=== PATIENT | female | born 1945 | race Caucasian/White ===

== ENCOUNTER 2017-06-06 17:00 | Emergency (ER) | payer MEDICARE, OTHER ==
[2017-06-06] MEDS ORDERED: ASPIRIN 81 MG TAB.CHEW ONE ×2 (17:03→17:10)
[2017-06-06] MEDS ORDERED: ONDANSETRON HCL/PF 2 MG/ML VIAL ONE (17:06)
[2017-06-06] MEDS ORDERED: CLOPIDOGREL BISULFATE 75 MG TABLET PO STA (17:06)
[2017-06-06] MEDS ORDERED: ONDANSETRON HCL/PF 2 MG/ML VIAL IV ONE (17:06)
[2017-06-06] MEDS ORDERED: ASPIRIN 81 MG TAB.CHEW PO ONE (17:10)
[2017-06-06] MEDS ORDERED: HEPARIN SODIUM,PORCINE 5,000 UNITS/ML VIAL IV ONE (17:11)
[2017-06-06 17:14] LABS: Hematocrit 39.5 % (37.0-47.0); Hemoglobin 13.7 gm/dL (12.5-16.0); Mean Cell Volume 88.4 fl (78-100); Mean Corpuscular Hemoglobin 30.6 pg (27-31); Mean Corpuscular Hgb Conc 34.7 g/dl (32-36); Mean Platelet Volume 9.8 fl (6.0-9.5); Platelet Count 334 K/mm3 (150-450); Red Blood Count 4.47 M/mm3 (4.2-5.4); Red Cell Distribution Width 11.8 % (11.5-14.0); White Blood Count 13.1 K/mm3 (4.0-10.5)
[2017-06-06] MEDS ORDERED: HEPARIN SODIUM,PORCINE/D5W 25,000 UNITS/500 ML BAG IV PRN (17:16)
--- NOTE | 2017-06-06 17:16 | ERNOTE ---
Chest Pain/Cardiac HPI Date of Service: 06/06/17 Chief Complaint: Chest Pain Time Seen by Provider: 06/06/17 17:11 Source: patient Exam Limitations: clinical condition Immunizations: IMMUNIZATION HX Immunizations Up to Date Yes History of Influenza Vaccine No Hx Pneumococcal Vaccination No Allergies/Adverse Reactions: Allergies coffee (Coffea arabica) Allergy (Intermediate, Verified 06/06/17 17:11) Vomiting codeine [Codeine] Allergy (Unknown, Verified 06/06/17 17:11) morphine Allergy (Unknown, Verified 06/06/17 17:11) Penicillins Allergy (Unknown, Verified 06/06/17 17:11) Home Medications: HOME MEDICATIONS Aspirin 325 mg PO DAILY 01/28/13 [Last Taken Unknown] Enalapril Maleate [Enalapril (Vasotec)] 10 mg PO DAILY 01/28/13 [Last Taken Unknown] [place]-3 Fatty Acids [Fish Oil] 500 mg PO TID 01/28/13 [Last Taken Unknown] Albuterol Sulfate 2.5 mg IH Q4H PRN 05/16/15 [Last Taken 05/16/15 14:00] FLUoxetine HCL [Prozac] 10 mg PO DAILY 03/05/16 [Last Taken Unknown] Cholecalciferol (Vitamin D3) [Vitamin D3] 2,000 unit PO DAILY #30 capsule [Last Taken Unknown] Lisinopril [Zestril] 10 mg PO HS #30 tablet 03/06/16 [Last Taken Unknown] Narrative: Patient presents with chest pain. She relates this pain is anterior chest, nausea, vomiting and diaphoresis with it. no fever. This began just [employer]. She has Hx of [place]. No blood in stool. Nothing makes it better or worse. moderate right now. no radiation. Not pleuritic. EMS called, EKG reveals STEMI. She denies taking Plavix, unsure if she took aspirin today. Timing: constant Severity/Quality: moderate Location: substernal Chest Pain Radiation: no radiation Modifying Factors - Improves: Present: nothing Modifying Factors - Worsens: Present: nothing Nitro Today/Relief: 0.4 mg x 1 Associated Symptoms: Present: nausea, vomiting. Absent: syncope, fever/chills, abdominal pain Prior Chest Pain/Cardiac Workup: Reports: heart attack Prior Treatment: Denies: recently seen Review of Systems - Review of Systems Constitutional: Absent: fever Respiratory: Absent: cough Cardiology: Present: chest pain Gastrointestinal/Abdominal: Present: nausea, vomiting. Absent: abdominal pain All Other Systems: All systems neg except as marked - Patient's Past Medical History Patient History - Medical: Diabetes Type 2 Patient History - Cardiac/Respiratory: No pertinent hx Patient History - Cancer: No Hx of Cancer Patient History - Surgical Procedures: Cholecystectomy, Cardiac stent, Patient History - Other: None - Family History Mother Family History - Medical: Seizures Family History - Cardiac/Respiratory: CVA/Stroke Father Family History - Medical: - Social History Living Situations: home Abuse History: No History of abuse Psych History: No pertinent hx Does anyone smoke in the home?: Yes Smoking Status: Current every day smoker Have you smoked in the past 12 months: Yes Alcohol Use: none Drug Use: none - Immunizations Immunizations Up to Date: Yes Hx Pneumococcal Vaccination: No History of Influenza Vaccine: No Physical Exam - Physical Exam General Appearance: Present: alert, other - diaphoretic. Alert Head Exam: Present: normal inspection Eye Exam: Normal inspection: bilateral, PERRL: bilateral Ears, Nose, Throat: Present: normal ENT inspection Neck: Present: normal inspection Respiratory: Present: no respiratory distress, no accessory muscle use, lungs clear Cardiovascular/Chest: Present: bradycardia Gastrointestinal/Abdominal: Present: normal bowel sounds, nontender, soft Back Exam: Absent: CVA tenderness (R), CVA tenderness (L) Extremity Exam: Present: other - no deformity Neurological Exam: Present: alert, no motor/sensory deficits Skin Exam: Present: normal color, warm/dry ED Progress - Results and Orders Patient's Lab Results:: I have reviewed the patient's lab results. - Vital Signs Patient's Vital Signs:: I have reviewed the patient's vital signs. Vital Signs: Vital Signs 06/06/17 17:01 Temperature 35.5 C L Pulse Rate 53 L Respiratory 20 Rate Blood Pressure 139/72 O2 Sat by Pulse 94 Oximetry - EKG EKG read: Interp. by me EKG Comments: Sinus Duc. Acute inferior [place] - X-Ray X-Ray #1 X-Ray: chest Interpretation: Interp. by me X-ray Comments: NAPP. No mediastinal widening - Progress/Reassessment Chief Complaint: Chest Pain Progress Note-Subjective: 06/06/17 17:21 AMI. I Immediately ordered cardiac panel. ASA, Plavix, NTG drip and Heparin ordered. I immediately spoke With Dr Henry at [facility], he accepts transfer to [facility] for STEMI and cath. No tPA requested at this time given rapid transport time. Pt agreeable. Transfer paperwork filled out. Departure Clinical Impression: STEMI (ST elevation myocardial infarction) - Departure Disposition: [facility] Condition: Serious
[2017-06-06] MEDS ORDERED: NITROGLYCERIN IN 5 % DEXTROSE 50 MG/250 ML INFUS..BTL IV PRN (17:17)
[2017-06-06 17:23] VITALS: BP 148/73
[2017-06-06 17:26] LABS: INR 1.04 INR (0.90-1.10); Partial Thrombolplastin Time 22.9 Seconds (24-32); Prothrombin Time (Patient) 10.8 Seconds (9.4-11.4)
[2017-06-06 17:27] LABS: Total Cells Counted 100
[2017-06-06 17:32] LABS: ALT 38 U/L (19-67); AST 43 U/L (0-48); Albumin * 4.1 gm/dl (3.4-5.0); Alkaline Phosphatase * 71 U/L (50-170); Anion Gap 16.8 mmol/L (6.8-13.8); BUN/Creatinine Ratio 12.9 (9.0-21.6); Bilirubin, Total 0.6 mg/dL (0.0-1.1); Blood Urea Nitrogen 18 mg/dL (3-23); Ca. Corrected For Albumin 8.5 mg/dL (8.4-10.2); Calcium * 8.9 mg/dL (7.9-10.9); Chloride 99 mmol/L (97-106); Glucose * 225 mg/dL (70-110); Potassium 3.8 mmol/L (3.4-4.6); Sodium 135 mmol/L (132-142); Troponin I Less than 0.017 ng/ml (0.00-0.10)
[2017-06-06 17:33] LABS: Band 2 % (0-2.0); Eosinophil 1 % (0-3); Immature Granulocyte 1 (0-1); Lymphocyte 48 % (20-51); Monocyte 2 % (0-9); Neutrophil 46 % (42-75)
[2017-06-06 17:35] LABS: Dohle Bodies 2+; Platelet Estimate Normal (NORMAL)
[2017-06-06 17:36] LABS: RBC Morphology Normal (NORMAL)
== END 2017-06-06 17:25 | disposition short-term general hospital (02) ==
LOC: ER 17:00
DX: I21.3 ST elevation (STEMI) myocardial infarction of unspecified site (principal); F17.200 Nicotine dependence, unspecified, uncomplicated
CPT/HCPCS: 36415; 71010; 80053; 84484; 85025; 85610; 85730; 93005; 96374; 96375; 99285; J2405